=== PATIENT | male | born 1985 | race Caucasian/White ===

== ENCOUNTER 2023-12-27 17:41 | Emergency (ER) | payer MEDICAID ==
[~2023-12-27] VITALS: Ht 180.3 cm; Wt 81.0 kg
[2023-12-27 18:07] VITALS: TEMP 98.4; O2SAT 100
[2023-12-27 19:16] LABS: BASOPHILS % 0.5 % (0.0-2.0); EOSINOPHILS % 0.2 % (0.0-5.0); HEMATOCRIT. 41.5 % (42.0-52.0); HEMOGLOBIN. 14.3 g/dL (14.0-18.0); LYMPHOCYTES % 14.8 % (20.0-50.0); MEAN CORPUSCULAR HEMOGLOBIN 32.1 pg (28.0-32.0); MEAN CORPUSCULAR HGB CONC 34.6 g/dL (31.0-37.0); MEAN CORPUSCULAR VOLUME 92.7 fL (80.0-94.0); MEAN PLATELET VOLUME 7.7 fl (7.4-10.4); MONOCYTES % 11.8 % (2.0-8.0); NEUTROPHILS % 72.7 % (40.0-76.0); PLATELET 274 x1000/uL (130-400); RED BLOOD CELL COUNT 4.47 mill/uL (4.7-6.1); RED CELL DISTRIBUTION WIDTH 13.2 % (11.6-14.6); WHITE BLOOD COUNT 9.9 x1000/uL (4.5-11.0)
[2023-12-27 19:29] LABS: ALANINE AMINOTRANSFERASE 71 IU/L (10-49); ALBUMIN 4.7 g/dL (3.2-4.8); ASPARTATE AMINOTRANSFERASE 64 IU/L (<34); BILIRUBIN TOTAL 1.4 mg/dL (0.1-1.0); CARBON DIOXIDE 25 mEq/L (21-32); CHLORIDE 104 mEq/L (98-107); GLUCOSE 111 mg/dL (70-105); POTASSIUM 3.6 mEq/L (3.5-5.1); SODIUM 137 mEq/L (136-145); UREA NITROGEN BLOOD 13 mg/dL (9-23)
[2023-12-27] MEDS: SODIUM CHLORIDE 0.9% 1,000 ML IV ONE (21:00)
[2023-12-27] MEDS: FAMOTIDINE 20MG/2ML VIAL IV ONE (22:04)
[2023-12-27] MEDS: KETOROLAC 30MG/ML VIAL IV ONE (22:04)
[2023-12-27] MEDS: ONDANSETRON HCL 4MG/2ML INJ IV ONE (22:04)
[2023-12-27] MEDS: MAGNESIUM/ALUMINUM HYDROXIDE/SIMETHICONE 30ML UDC PO ONE (22:15)
[2023-12-27 22:16] LABS: CLARITY URINE CLEAR (CLEAR); COLOR URINE YELLOW (YELLOW); GLUCOSE URINE NEGATIVE (NEGATIVE); KETONES URINE NEGATIVE (NEGATIVE); LEUKOCYTE ESTERASE URINE NEGATIVE (NEGATIVE); NITRITE URINE NEGATIVE (NEGATIVE); OCCULT BLOOD URINE NEGATIVE (NEGATIVE); PROTEIN URINE NEGATIVE (NEGATIVE); SPECIFIC GRAVITY URINE 1.008 (1.005-1.030); UROBILINOGEN URINE 0.2 E.U./dL (0.2-1.0)
[2023-12-27] MEDS ORDERED: FAMO-135 MT (23:43)
[2023-12-28] MEDS: ACETAMINOPHEN 500MG TABLET PO ONE (00:45)
[2023-12-28 01:10] VITALS: BP 133/83; PULSE 80; RESP 18
== END 2023-12-28 00:55 | disposition home or self-care (01) ==
LOC: ER 17:41
DX: R10.816 Epigastric abdominal tenderness (principal)
CPT/HCPCS: 99285; 96374; 76705; 96361; 96375; 80053; 81003; 83690; 85025; 36415; J3490; J1885; J2405; J7030